=== PATIENT | female | born 1980 ===

== ENCOUNTER 2019-03-11 21:12 | Emergency (ER) | payer OTHER ==
[~2019-03-11] VITALS: Ht 160 cm; Wt 83.0 kg
[~2019-03-11 21:12] MED LIST: CLONAZEPAM1 MG PO; LEVSIN/SL0.125 MG PO; LEVSIN0.125 MG PO; NEURONTIN800 MG PO; ORPH100T PO; PROTONIX40 MG PO; RESTORIL30 M1 PO; ULTRAM50 MG PO; ZANTAC300 MG PO; ZOFRAN4 MG PO; ZOLOFT100 MG PO
[2019-03-11] MEDS ORDERED: PROVIDA DHA CA1 EACH (21:30)
== END 2019-03-11 23:55 | disposition home or self-care (01) ==
LOC: ER 21:12
DX: O20.8 Other hemorrhage in early pregnancy (principal); Z34.01 Encounter for supervision of normal first pregnancy, first trimester

== ENCOUNTER 2019-03-20 21:40 | Emergency (ER) | payer OTHER ==
[~2019-03-20] VITALS: Ht 160 cm; Wt 86.2 kg
[~2019-03-20 21:40] MED LIST changes: +PROVIDA DHA CA1 EACH
== END 2019-03-21 04:52 | disposition home or self-care (01) ==
LOC: ER 21:40
DX: O46.8X1 Other antepartum hemorrhage, first trimester (principal); O43.891 Other placental disorders, first trimester; Z34.01 Encounter for supervision of normal first pregnancy, first trimester

== ENCOUNTER 2019-04-18 22:48 | Emergency (ER) | payer OTHER ==
[~2019-04-18] VITALS: Ht 160 cm; Wt 86.2 kg
== END 2019-04-19 03:57 ==
LOC: ER 22:48
DX: O46.8X2 Other antepartum hemorrhage, second trimester (principal)

== ENCOUNTER 2019-10-13 21:41 | Inpatient (IN) | payer OTHER ==
[~2019-10-13] VITALS: Ht 160 cm; Wt 103.0 kg
[2019-10-15] MEDS ORDERED: ADULT LOW DOSE81 M1 PO (08:22)
== END 2019-10-16 13:38 | disposition home or self-care (01) | DRG 807 ==
LOC: LDR 21:41 → OB/GYN 10-14 12:51 → SURG-SUITE 10-14 13:36
PROVIDERS: ADMIT Obstetrics & Gynecology; ATTEND Obstetrics & Gynecology
PROC: 10E0XZZ Delivery of Products of Conception, External Approach (ICD-10-PCS; principal; 2019-10-13)
PROC: 0UQGXZZ Repair Vagina, External Approach (ICD-10-PCS; 2019-10-13)
PROC: 4A1HXCZ Monitoring of Products of Conception, Cardiac Rate, External Approach (ICD-10-PCS; 2019-10-13)
DX: O71.4 Obstetric high vaginal laceration alone (principal); Z37.0 Single live birth; Z3A.40 40 weeks gestation of pregnancy